=== PATIENT | female | born 2005 | race Caucasian/White ===

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

== ENCOUNTER 2025-03-04 11:33 | Outpatient (CLI) | payer BC, SELFPAY ==
--- NOTE | ~2025-03-04 | XR_ITS ---
EXAMINATION: XR hand RT min 3V, 03/04/2025 12:18 [employer] HISTORY: Unspecified injury of right wrist, slammed hand in car door COMPARISON: No comparisons available. Findings: No acute fracture or malalignment. No significant degenerative changes. Soft tissues unremarkable. Impression: No acute fracture or malalignment. Reviewed, dictated and finalized at location P. S TE[employer] Impression: No acute fracture or malalignment.
== END 2025-03-04 11:34 | disposition home or self-care (01) ==
LOC: GOSHIMG 11:34
PROVIDERS: PCP Nurse Practitioner Family; Visit Provider Nurse Practitioner Family
DX: S69.91XA Unspecified injury of right wrist, hand and finger(s), initial encounter (principal); X58.XXXA Exposure to other specified factors, initial encounter
CPT/HCPCS: 73130